=== PATIENT | female | born 1970 | race Two or more races ===

== ENCOUNTER 2021-07-19 17:21 | Emergency (ER) | payer BC ==
[~2021-07-19] VITALS: Ht 170.2 cm; Wt 56.7 kg
[2021-07-19 19:30] VITALS: BP 113/65
[2021-07-19] MEDS ORDERED: CEPH-322 PO (19:38)
== END 2021-07-19 20:19 | disposition home or self-care (01) ==
LOC: ER 17:21
DX: L03.115 Cellulitis of right lower limb (principal)
CPT/HCPCS: 73560; 93971

== ENCOUNTER 2022-03-04 12:19 | Emergency (ER) | payer BC ==
[~2022-03-04] VITALS: Ht 170.2 cm; Wt 58.3 kg
[~2022-03-04 12:19] MED LIST: CEPH-322 PO
[2022-03-04 13:13] LABS: Urine Bacteria NONE SEEN /hpf (None Seen); Urine Blood 2+ /uL (Negative); Urine Mucus MODERATE (None Seen); Urine WBC 1 /hpf (0 - 5)
[2022-03-04 14:18] LABS: Basophils # (auto) 0 10 ^3/uL (0-0.2); Basophils % (auto) 0.3 % (0.0-2.0); Eosinophils # (auto) 0 10 ^3/uL (0-0.8); Eosinophils % (auto) 0.5 % (0.0-7.0); Hematocrit 45.6 % (36.0-46.0); Lymphocytes # (auto) 0.6 10 ^3/uL (0.4-5.4); Lymphocytes % (auto) 16.8 % (10.0-50.0); Mean Corpuscular Hemoglobin 29.4 pg (28.0-32.0); Mean Corpuscular Volume 89.2 fL (80.0-100.0); Monocytes # (auto) 0.4 10 ^3/uL (0-1.3); Monocytes % (auto) 11.4 % (0.0-12.0); Neutrophils # (auto) 2.7 10 ^3/uL (1.6-8.6); Nucleated Red Blood Cells % 0.1 %; Red Blood Cells 5.11 10^6/uL (4.0-5.20); Red Cell Distribution Width 13.2 % (11.8-14.3); White Blood Cell 3.8 10^3/uL (4.4-10.8)
[2022-03-04 14:19] LABS: Albumin 4.4 g/dL (3.4-5.0); Calcium 8.6 mg/dL (8.5-10.1)
[2022-03-04 14:21] LABS: BUN/Creatinine Ratio 11.6
[2022-03-04 14:24] LABS: Bilirubin, Total 1.1 mg/dL (0.2-1.0); Total Protein 7.2 g/dL (6.4-8.2)
[2022-03-04] MEDS ORDERED: LACTATED RINGER'S 2,000 ML IV ONE (15:15)
[2022-03-04] MEDS ORDERED: ONDANSETRON HCL 4 MG/2 ML VIAL IV ONE (15:45)
[2022-03-04] MEDS ORDERED: ONDA-144 PO ×2 (18:37→18:38)
[2022-03-04 19:40] VITALS: BP 129/73
== END 2022-03-04 19:50 | disposition home or self-care (01) ==
LOC: ER 12:19
DX: E86.0 Dehydration (principal)
CPT/HCPCS: 36415; 80053; 81001; 85025; 96361; 96374; 99283; J2405